=== PATIENT | male | born 1990 | race Caucasian/White ===

== ENCOUNTER 2019-03-31 03:33 | Emergency (ER) | payer BC ==
[2019-03-31] MEDS ORDERED: Diazepam 2 MG Tab PO ONE (04:06)
[2019-03-31] MEDS ORDERED: Acetaminophen/HYDROcodone 325-7.5 MG Tab PO ONE (04:06)
--- NOTE | 2019-03-31 04:13 | EDM.PDOC ---
<Dede Ramírez - Last Filed: 03/31/19 04:43> ED HPI GENERAL MEDICAL PROBLEM - General Chief Complaint: Back Pain or Injury Stated Complaint: SEVERE BACK PAINS Time Seen by Provider: 03/31/19 03:48 - History of Present Illness INITIAL COMMENTS - FREE TEXT/NARRATIVE: HISTORY AND PHYSICAL: History of present illness: The patient is a 29-year-old male who presents with an proximately 24-hour history of deep lumbar back pain that started when he got up out of a chair and has been progressive and is worse with position change and movement. Patient said that about 24 hours ago he got up from a chair and felt a twinge in his back and a dull pain and over the course of the last 24 hours he has had to sit in a car for prolonged period of time and take a class sitting for prolonged period of time and the pain has worsened and he is much more stiff. He has no abdominal pain no bowel or bladder disturbances no flank pain no hematuria and has been using [id number] Tylenol for pain. He has no numbness or weakness in his lower extremities and no tingling. He denies any direct trauma to the area and does do lifting and twisting for work but doesn't recall any specific event or trauma. The pain does not radiate to his legs or his butt. Review of systems: As per history of present illness and below otherwise all systems reviewed and negative. Past medical history: As per history of present illness and as reviewed below otherwise noncontributory. Surgical history: As per history of present illness and as reviewed below otherwise noncontributory. Social history: No reported history of drug or alcohol abuse. Family history: As per history of present illness and as reviewed below otherwise noncontributory. Physical exam: General: Well-developed well-nourished man who is nontoxic and has visible discomfort with position changing from sitting to standing and getting his gait going. He was able to ambulate to the ED without assistance. Vital signs are noted by me HEENT: Atraumatic, normocephalic, negative for conjunctival pallor or scleral icterus, mucous membranes moist, throat clear, neck supple, nontender, trachea midline. Lungs: Clear to auscultation, breath sounds equal bilaterally, chest nontender. Heart: S1S2, regular rate and rhythm no overt murmurs, Abdomen: Soft, nondistended, nontender. Negative for masses or hepatosplenomegaly. Negative for costovertebral tenderness. Pelvis: Stable nontender. Genitourinary: Deferred. Rectal: Deferred. Extremities: Atraumatic, negative for cords or calf pain. Neurovascular unremarkable. Range of motion without defects or deficits Neuro: Awake, alert, oriented. Cranial nerves II through XII unremarkable. Cerebellum unremarkable. Motor and sensory unremarkable throughout. Exam nonfocal. Dorsi and plantar flexion is 5/5 inclusive of the great toe and when the patient initiates trying to stand events he has visible issues getting the motion going and then can stand upright. He has normal tone in his lower extremities and patellar reflexes are +2 over 4 Back: There are no midline step-offs in his defects of the thoracic or lumbar spine and there is no posterior pelvis or SI joint tenderness appreciated. There is no discrete paraspinal tenderness or soft tissue changes and I cannot reproduce the pain on palpation Diagnostics: Lumbar spine x-rays UA with reflex Therapeutics: Patient declined any IM medications, Ophiem, Valium I discussed with the patient and at bedside that this is likely a deep muscle sprain strain such as a QL as it is worse with position change and it is not palpable. I told him that we would check some basic x-rays and a UA and plan to treat this symptomatically but that he would need close follow-up for further imaging as needed if the care plan is not progressing in an appropriate fashion. He currently exhibits no signs of disc injury or disease but is aware that that can only be diagnosed on MRI as an outpatient. Impression: Acute lumbar back pain Definitive disposition and diagnosis as appropriate pending reevaluation and review of above. back Pain Score (Numeric/FACES): 5 - Related Data Allergies Allergy/AdvReac Type Severity Reaction Status Date / Time No Known Allergies Allergy Verified 03/31/19 03:55 Home Meds: Home Meds . [No Known Home Meds] 03/31/19 [History] Past Medical History - Past Health History Medical/Surgical History: Denies Medical/Surgical History - Infectious Disease History Infectious Disease History: Reports: Chicken Pox Social & Family History - Family History Family Medical History: Noncontributory - Tobacco Use Smoking Status *Q: Current Every Day Smoker Years of Tobacco use: 13 Packs/Tins Daily: 1 - Caffeine Use Caffeine Use: Reports: Coffee, Energy Drinks, Soda - Recreational Drug Use Recreational Drug Use: No ED ROS GENERAL - Review of Systems Review Of Systems: ROS reveals no pertinent complaints other than HPI. ED EXAM, GENERAL - Physical Exam Exam: See Below (See dictation) Course - Vital Signs Last Recorded V/S: Last Vital Signs Temp 36.0 C 03/31/19 03:47 Pulse 72 03/31/19 03:47 Resp 17 03/31/19 03:47 BP 122/70 03/31/19 03:47 Pulse Ox 97 03/31/19 03:47 - Orders/Labs/Meds Orders: Active Orders 24 hr Category Date Time Status Lumbar Spine 2 or 3V [CR] Stat Exams 03/31/19 04:07 Taken Labs: Laboratory Tests 03/31/19 Range/Units 04:40 Urine Color YELLOW Urine Appearance CLEAR Urine pH 6.0 (5.0-8.0) Ur Specific [place] >= 1.030 (1.001-1.035) Urine Protein NEGATIVE (NEGATIVE) mg/dL Urine Glucose (UA) NEGATIVE (NEGATIVE) mg/dL Urine Ketones NEGATIVE (NEGATIVE) mg/dL Urine Occult Blood NEGATIVE (NEGATIVE) Urine Nitrite NEGATIVE (NEGATIVE) Urine Bilirubin NEGATIVE (NEGATIVE) Urine Urobilinogen 0.2 (<2.0) EU/dL Ur Leukocyte Esterase NEGATIVE (NEGATIVE) Meds: Medications Discontinued Medications Generic Name Dose Route Start Last Admin Trade Name Juanq PRN Reason Stop Dose Admin Hydrocodone Bitart/Acetaminophen 1 tab 03/31/19 04:06 03/31/19 04:13 Ophiem 325-7.5 Mg PO 03/31/19 04:07 1 tab ONETIME ONE Administration Diazepam 2 mg 03/31/19 04:06 03/31/19 04:13 Valium PO 03/31/19 04:07 2 mg ONETIME ONE Administration Departure - Departure Disposition: Home, Self-Care 01 Condition: Good Clinical Impression: Acute lumbar back pain Qualifiers: Back pain laterality: bilateral Sciatica presence: without sciatica Qualified Code(s): M54.5 - Low back pain - Discharge Information Referrals: PCP,None [Primary Care Provider] - Forms: ED Department Discharge Additional Instructions: The following information is given to patients seen in the emergency department who are being discharged to home. This information is to outline your options for follow-up care. We provide all patients seen in our emergency department with a follow-up referral. The need for follow-up, as well as the timing and circumstances, are variable depending upon the specifics of your emergency department visit. If you don't have a primary care physician on staff, we will provide you with a referral. We always advise you to contact your personal physician following an emergency department visit to inform them of the circumstance of the visit and for follow-up with them and/or the need for any referrals to a consulting specialist. The emergency department will also refer you to a specialist when appropriate. This referral assures that you have the opportunity for followup care with a specialist. All of these measure are taken in an effort to provide you with optimal care, which includes your followup. Under all circumstances we always encourage you to contact your private physician who remains a resource for coordinating your care. When calling for followup care, please make the office aware that this follow-up is from your recent emergency room visit. If for any reason you are refused follow-up, please contact the [facility] emergency department at and ask to speak to the emergency department charge nurse. [facility] Primary care- Internal [place] [address] Use ice or heat to area as you choose as this may help somewhat. Please call and schedule a follow-up appointment in our clinic for reevaluation of the care plan and further imaging and reassessment as needed. Expect this pain to slowly improve over the next few days to 10 days. Do all position changes slowly as we discussed. You have been given a prescription for pain medicine at home including a muscle relaxer and anti-inflammatory and pain med. Please take the muscle relaxer and the pain medication only when you're at home. Return to ER as needed and as discussed <oCsmo Goss - Last Filed: 03/31/19 05:32> ED HPI GENERAL MEDICAL PROBLEM - History of Present Illness INITIAL COMMENTS - FREE TEXT/NARRATIVE: Emergency department course has been unremarkable x-rays of lumbar spine were negative for acute process UA was normal patient be discharged as above follow- up private medical doctor and return as needed discussed Departure - Departure Time of Disposition: 05:32 Condition: Good
--- NOTE | 2019-03-31 06:05 | CR ---
INDICATION: pain, no injury LUMBAR SPINE FINDINGS: No acute fractures are identified. No destructive osseous lesions are seen. Osseous alignment is within normal limits and no subluxation is seen. Paravertebral soft tissues are unremarkable. IMPRESSION: No fracture, subluxation, or other acute finding identified. BARBARA EUBANKS MD [facility] Dictated by: Daryn Eubanks MD @ 03/31/2019 06:03:41 (Electronically Signed)
== END 2019-03-31 05:55 | disposition home or self-care (01) ==
LOC: MW.ED 03:33
DX: M54.5 Low back pain (principal); F17.210 Nicotine dependence, cigarettes, uncomplicated
CPT/HCPCS: 72100; 81003; 99283; A9270